=== PATIENT | male | born 2005 | race Caucasian/White ===

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

== ENCOUNTER 2025-07-12 09:35 | Emergency (ER) | payer OTHER, SELFPAY ==
[2025-07-12 09:35] VITALS: BP 139/88; PULSE 89; RESP 16; TEMP 36.6; O2SAT 100; BMI 32.3
--- NOTE | 2025-07-12 09:48 | EX.ED.GENINJ ---
HPI History of Present Illness Chief Complaint: Bite Informant: patient Narrative Narrative: Patient is 20-year-old male with no significant past medical history presenting with a tick bite to his left neck. Thinks he got it on him when deer hunting over the week and (on Friday). This was 3 days ago. Removed at this morning. Wanted to make sure he got it all out and be evaluated further. No other complaints. States he has been feeling well. [facility] Medical History Skull fracture Home Medications ?Medication ?Instructions ?Recorded ?Last Taken ?Type NK 08/15/22 Unknown History Allergy/AdvReac Type Severity Reaction Status Date / Time No Known Allergies Allergy Verified 07/12/25 09:37 Family History Mother Asthma Hypertension Social History Smoking Status: Never smoker ROS ROS ED Constitutional Constitutional ED: Denies chills or fever(s) Musculoskeletal Musculoskeletal: Denies arthralgias or myalgias Integumentary Reports other Details: tick bite to neck ; Denies rash Neurologic Neurologic: Denies paresthesias or weakness Hematologic/Lymphatic Hematologic/Lymphatic: Denies easy bleeding or easy bruising EXAM Physical Exam Const Vital Signs: 07/12/25 09:35 Temperature 97.8 F Temperature Source Oral Pulse Rate 89 Respiratory Rate 16 Blood Pressure 139/88 H Blood Pressure Mean 105 Pulse Ox 100 Oxygen Delivery Method Room Air Positive well nourished and well developed General Appearance ED: well developed and NAD HEENT atraumatic Neck full ROM General: Negative for tenderness Chest Wall inspection of chest normal and palpation of chest normal Resp normal respiratory effort and clear to auscultation bilaterally Cardio regular rhythm and no murmurs Rate: regular rate Extremity full ROM Neuro oriented x3 Sensorium / Orientation: alert Psych mental status grossly normal and thought process normal Skin Skin Narrative: Erythema to the hands?patient states this is consistent with burn from welding. No other rash was reported. Small well circumcised area of erythema and slight ulceration of the left anterior neck consistent with recent tick bite. Erythema is not consistent with cellulitis. No target lesion appreciated. No retained foreign body appreciated. MDM MDM MDM Narrative Medical decision making narrative: Patient evaluated for tick bite to his neck. Tick was on for approximately 3 days and removed this morning. I do not see any retained foreign body counseled that even if there was a small piece of the tick left we would not go digging in for it. Will be prophylactically treated for Lyme disease with one-time dose of doxycycline. He is currently not have any signs or symptoms of Lyme disease. Patient agreeable this plan of care. Given return precautions. Discharged home in stable condition. Discharge Plan Triage Chief Complaint: Bite ED Provider: Candis Prasad Dx/Rx/DC Orders Clinical Impression: Tick bite, Risk of exposure to Lyme disease Instructions: ED Tick Bite, Antibiotic Treatment Prescriptions: No Action NK Primary Care Provider: Care Physician,No Primary Referrals: NOT,DEFINED [Non-Staff, None] Print Language: Maltese Disposition Disposition: Home, Self Care
[2025-07-12 10:11] VITALS: BP 156/79; PULSE 67; RESP 14; TEMP 36.1; O2SAT 98
== END 2025-07-12 10:25 | disposition home or self-care (01) ==
LOC: ED 10:03
PROVIDERS: Emergency Provider Emergency Medicine; Visit Provider Emergency Medicine
DX: S10.86XA Insect bite of other specified part of neck, initial encounter (principal); W57.XXXA Bitten or stung by nonvenomous insect and other nonvenomous arthropods, initial encounter; Y93.89 Activity, other specified
CPT/HCPCS: 99282